=== PATIENT | female | born 2000 | race Caucasian/White ===

== ENCOUNTER 2022-01-04 13:46 | Emergency (ER) | payer SELFPAY ==
[~2022-01-04 13:46] MED LIST: Iopamidol-370 76% 500 ML 1 ML ONE
[2022-01-04 14:26] LABS: #Eosinphils 0.1 thou/uL (0.0-0.7); #Lymphocytes 0.8 thou/uL (1.20-3.40); #Monocytes 0.8 thou/uL (0.11-0.59); #Neutrophils 12.3 thou/uL (1.40-6.50); %Basophils 0.1 % (0.0-1.0); %Eosinophils 0.5 % (0.0-10.0); %Lymphocytes 5.7 % (28.0-48.0); %Monocytes 5.8 % (0.0-4.0); %Neutrophils 87.9 % (31.0-61.0); Hemoglobin 9.5 g/dL (12.0-16.0); Mean Corpuscular HGB CONC 31.5 g/dL (32.0-36.0); Mean Corpuscular Hemoglobin 26.9 pg (25.0-35.0); Mean Corpuscular Volume 85.3 fL (78.0-98.0); Mean Platelet Volume 9.2 fL (7.4-10.4); Platelet Count 257 thou/uL (130-400); RBC Distribution Width 17.6 % (11.5-14.5); Red Blood Cell (RBC) Count 3.54 mill/uL (4.00-5.20); White Blood Cell (WBC) Count 14.1 thou/uL (4.8-10.8)
[2022-01-04 14:46] LABS: ALT (SGPT) 8 U/L (8-55); AST (SGOT) 12 U/L (5-30); Albumin 3.5 g/dL (3.5-5.0); Alkaline Phosphatase 98 U/L (40-100); Anion Gap 13 mmol/L (10-20); BUN (Urea Nitrogen) 9 mg/dL (8.4-21.0); Bilirubin, Total 0.6 mg/dL (0.2-1.2); Calc. Creatinine Clearance 0 mL/min (70-130); Carbon Dioxide 24 mmol/L (22-29); Chloride 104 mmol/L (98-107); Estimated GFR 130; Globulin 3.8 g/dL (2.4-3.5); Glucose 83 mg/dL (70-105); Potassium 3.7 mmol/L (3.5-5.1); Protein, Total 7.3 g/dL (6.0-8.3); Sodium 137 mmol/L (136-145)
== END 2022-01-04 16:29 | disposition home or self-care (01) ==
LOC: ERS 13:46
DX: C81.90 Hodgkin lymphoma, unspecified, unspecified site (principal)
CPT/HCPCS: 36415; 71275; 80053; 85025; Q9967

== ENCOUNTER 2022-01-24 08:00 | Outpatient (CLI) | payer BC | END 2022-01-24 08:01 | disposition home or self-care (01) | LOC: PET 08:00 | PROVIDERS: ATTEND Internal Medicine Hematology & Oncology | DX: C81.12 Nodular sclerosis Hodgkin lymphoma, intrathoracic lymph nodes (principal); D50.0 Iron deficiency anemia secondary to blood loss (chronic) | CPT/HCPCS: 78815; A9552 ==

== ENCOUNTER 2022-01-24 11:29 | Outpatient (CLI) | payer BC ==
[2022-01-24 14:06] LABS: Hemoglobin 8.8 g/dL (12.0-15.5); MDiff Complete? YES; Mean Corpuscular HGB CONC 30.9 g/dL (32.0-36.0); Mean Corpuscular Hemoglobin 25.1 pg (27.0-33.0); Mean Corpuscular Volume 81.2 fl (81.6-98.3); Mean Platelet Volume 9.9 fl (7.4-10.4); Platelet Count 685 10x3/uL (150-450); RBC Distribution Width 18.6 % (11.5-14.5); Red Blood Cell (RBC) Count 3.51 10x6/uL (3.90-5.03)
[2022-01-24 14:28] LABS: BHCG - Serum POSITIVE (NEGATIVE); Pregs Control Background? CLEAR/WHITE (CLR/WHITE); Pregs Control Bar Appear? YES (CONTROL BAR)
[2022-01-24 14:30] LABS: Anion Gap 16 mmol/L (10-20); BUN (Urea Nitrogen) 13 mg/dL (8.4-21.0); Calc. Creatinine Clearance 0 mL/min (70-130); Carbon Dioxide 23 mmol/L (22-29); Chloride 103 mmol/L (98-107); Estimated GFR 131; Glucose 122 mg/dL (70-105); Potassium 4.1 mmol/L (3.5-5.1); Sodium 138 mmol/L (136-145)
[2022-01-24 14:32] LABS: Anisocytosis SLIGHT = 6-15 cells (100X) (0-5/hpf); Lymphocytes 6 % (28-48); Monocytes 5 % (0-4); Neutrophil 89 % (31-61)
[2022-01-24 14:33] LABS: Hypochromia SLIGHT = 6-15 cells (100X) (0-5/hpf); Microcytosis SLIGHT = 6-15 cells (100X) (0-5/hpf); Platelet Morphology Comment Appears Increased
== END 2022-01-24 11:30 | disposition home or self-care (01) ==
LOC: LABBT 11:29
PROVIDERS: ATTEND Specialist
DX: Z01.812 Encounter for preprocedural laboratory examination (principal); C81.94 Hodgkin lymphoma, unspecified, lymph nodes of axilla and upper limb
CPT/HCPCS: 80048; 84703; 85025

== ENCOUNTER 2022-01-29 09:59 | Day surgery (SDC) | payer BC ==
[2022-01-28 10:32] VITALS: BMI 35.4
[2022-01-29] MEDS ORDERED: Ketorolac Tromethamine 30 MG/ML VIAL ONE (11:12)
[2022-01-29] MEDS ORDERED: Acetaminophen 500 MG TAB ONE (11:12)
[2022-01-29] MEDS ORDERED: Bupivacaine 0.25% HCL 30 ML VIAL ONE (12:02)
[2022-01-29] MEDS ORDERED: EPINEPHrine 1 MG/ML AMP ONE (12:02)
[2022-01-29] MEDS ORDERED: Lidocaine 1% (PF) 30 ML VIAL ONE (12:02)
[2022-01-29] MEDS ORDERED: Midazolam HCl 2 mg/2 ml Vial ONE (12:23)
[2022-01-29] MEDS ORDERED: fentaNYL Citrate/PF 100 MCG/2 ML SYRINGE ONE (12:24)
[2022-01-29] MEDS ORDERED: Sodium Chloride 0.9% 100 ML ONE (12:38)
[2022-01-29] MEDS ORDERED: CEFAZOLIN 2 GM VIAL ONE (12:38)
[2022-01-29] MEDS ORDERED: PHENYLEPHRINE-NS 100 MCG/ML 10 ML SYRINGE ONE (12:49)
[2022-01-29] MEDS ORDERED: Ondansetron PF 4 MG/2 ML Vial ONE (12:49)
[2022-01-29] MEDS ORDERED: Propofol 500 MG/50 ML VIAL ONE (12:59)
== END 2022-01-29 15:17 | disposition home or self-care (01) ==
LOC: SDC 09:59
PROVIDERS: ATTEND Specialist
PROC: 0JH60WZ Insertion of Totally Implantable Vascular Access Device into Chest Subcutaneous Tissue and Fascia, Open Approach (ICD-10-PCS; principal; 2022-01-29)
PROC: 02HV33Z Insertion of Infusion Device into Superior Vena Cava, Percutaneous Approach (ICD-10-PCS; principal; 2022-01-29)
DX: O9A.119 Malignant neoplasm complicating pregnancy, unspecified trimester (principal); C81.94 Hodgkin lymphoma, unspecified, lymph nodes of axilla and upper limb; O16.9 Unspecified maternal hypertension, unspecified trimester; O99.210 Obesity complicating pregnancy, unspecified trimester
CPT/HCPCS: 71045; C1788; J0171; J0690; J1642; J1885; J2001; J2250; J2405; J2704; J3490; S0020

== ENCOUNTER 2022-04-30 08:00 | Outpatient (CLI) | payer BC | END 2022-04-30 08:01 | disposition home or self-care (01) | LOC: PET 08:00 | PROVIDERS: ATTEND Internal Medicine Hematology & Oncology | DX: C81.12 Nodular sclerosis Hodgkin lymphoma, intrathoracic lymph nodes (principal); R59.0 Localized enlarged lymph nodes; R59.9 Enlarged lymph nodes, unspecified | CPT/HCPCS: 78815; A9552 ==

== ENCOUNTER 2022-07-23 11:00 | Outpatient (CLI) | payer BC | END 2022-07-23 11:01 | disposition home or self-care (01) | LOC: PET 11:00 | PROVIDERS: ATTEND Internal Medicine Hematology & Oncology | DX: C81.12 Nodular sclerosis Hodgkin lymphoma, intrathoracic lymph nodes (principal); R59.9 Enlarged lymph nodes, unspecified | CPT/HCPCS: 78815; A9552 ==